=== PATIENT | male | born 1975 | race Two or more races ===

== ENCOUNTER 2017-12-22 16:36 | Emergency (ER) | payer OTHER ==
--- NOTE | 2017-12-22 16:50 | NUR ---
PT L[place]ETTA FROM THE STREETS TO ER BED 14. PER REPORT, IS C/O GENERALIZED BODY ACHES. STRONG ETOH SMELL. REFUSING TO ANSWER QUESTIONS AND JUST COVERING UP WITH HIS JACKET. PLACED ON MONITOR. STABLE VITALS. AWAITING MD CHRISTIE.
--- NOTE | 2017-12-22 16:54 | NUR ---
DR WESTFALL AT BEDSIDE FOR EVAL. PT REFUSING TO ANSWER QUESTIONS.
--- NOTE | 2017-12-22 17:05 | NUR ---
PT NOT TALKING TO DOCTOR WESTFALL, UNCOOPETAIVE TO STAFF. STABLE VITALS. VERBALLY DISCHARGE BY ED PROVIDER. REFUSING TO SIGN. ACI.
[2017-12-22 17:43] VITALS: BP 133/76
== END 2017-12-22 17:05 | disposition home or self-care (01) ==
LOC: ER 16:39
DX: F10.129 Alcohol abuse with intoxication, unspecified (principal)
CPT/HCPCS: 99283; A4606